=== PATIENT | female | born 1940 | race Caucasian/White ===

== ENCOUNTER → 2017-09-07 | Day surgery (SDC) | payer OTHER ==
--- NOTE | 2017-09-07 14:41 | Operative Report ---
Operative/Inv Procedure Report Surgery Date: 09/07/17 Name of Procedure: Left ureteroscopy stone extraction stent placement with fluoroscopy Pre-Operative Diagnosis: Left ureteral calculus Post-Operative Diagnosis: Left ureteral calculus Estimated Blood Loss: scant Surgeon/Shoeshiner: Ravi NÚÑEZ,Marques Blanchard Anesthesia: general endotracheal tube Implants: Left double-J stent 6 Green[place]ic by 24 cm Specimens: Left ureteral calculus Operative Indication: History of a left ureteral calculus, with continued pain requiring narcotics. She was given alternatives, and chose to undergo left ureteroscopy with stone extraction stent placement. She was made where the combination/indications thereof including but not exclusive of , heart attack, stroke, hemorrhage requiring transfusion, damage to organs including but not exclusive of the kidney, ureter, bladder, urethra. She was agreeable to undergo the procedure which is as follows. Operative/Procedure Note Note: After uneventful induction of general anesthesia patient was placed in the lithotomy position and prepped and draped in a sterile fashion. At this point a 22 Green[place]ic cystoscope was passed into the bladder. Thorough inspection of bladder did not reveal any mucosal lesions or stones. Both ureteral orifices were noted to be normal. The left orifice was cannulated with an open-ended catheter, Glidewire was passed up the left kidney. This was done a second time, one was use a working wire one was used as a safety wire. Over the working wire was passed a ureteroscope up the left ureter. Thorough inspection year revealed a solitary stone, which was basketed and removed in its entirety. The stone fragmented as it was removed, and data entry representative pieces were sent for analysis. Thorough inspection of the ureter after did not reveal any evidence of any significant trauma, or retained fragments. At this point the safety wire was then backloaded into a cystoscope over this was passed a double-J stent which was positioned fluoroscopically as well as endoscopically. Upon completion of the procedure the bladder was emptied, and the patient was awakened and returned to recovery room in good condition.
--- NOTE | 2017-09-08 16:13 | RADIOLOGY REPORT ---
EXAMINATION: XR ABDOMEN CLINICAL INDICATION: 77-year-old female for left-sided ureteroscopy and stent insertion in the OR. COMPARISON: None. TECHNIQUE: Multiple fluoroscopic spot radiographs were obtained at the time of the procedure, total of 10 images. FLUOROSCOPY TIME: 0.4 minutes. FINDINGS: Multiple spot radiographs were obtained at the time of the left-sided ureteroscopy and stent placement. The final radiograph shows placement of a left-sided double-J internal ureteric stent, appears in good position. IMPRESSION: Multiple radiographs were obtained at the time of left-sided ureteroscopy and stent insertion. Full procedural detail will be dictated by Dr. Rodrigues.
== END ==
LOC: STS 07:00
DX: N20.1 Calculus of ureter (principal); Z87.442 Personal history of urinary calculi
CPT/HCPCS: 74018; C2617; J0131; J0690; J1630; J2250